=== PATIENT | female | born 1950 ===

== ENCOUNTER 2017-11-03 11:35 | Emergency (ER) | payer OTHER ==
[2017-11-03 12:44] VITALS: BP 149/76
--- NOTE | 2017-11-03 13:37 | UC ---
Abdominal Pain Female HPI - HPI Summary HPI Summary: 66 yo WF c/o acute 9/10 suprapubic pain x 2 days associated with changes in urines color to annamaria. Denies f/c - History of Current Complaint Chief Complaint: UCAbdominalPain Stated Complaint: ABD PAIN Time Seen by Provider: 11/03/17 12:44 Hx Obtained From: Patient ?: No Onset/Duration: Sudden Onset Severity Initially: Moderate Severity Currently: Severe Pain Intensity: 9 Character: Aching, Dull, Sharp Aggravating Factor(s): Nothing Alleviating Factor(s): Nothing Allergies/Adverse Reactions: Allergies Allergy/AdvReac Type Severity Reaction Status Date / Time No Known Allergies Allergy Verified 11/03/17 12:44 Home Medications: Home Medications Omeprazole CAP* [Prilosec CAP* 20 MG] 20 mg PO DAILY 11/03/17 [History Confirmed 11/03/17] Tramadol 50 MG # 6 TAB PREPAK 50 mg PO DAILY WITH MEAL MDD 100 11/03/17 [ History Confirmed 11/03/17] PMH/Surg Hx/FS Hx/Imm Hx - Additional Past Medical History Additional PMH: OBESE Previously Healthy: Yes - Surgical History Surgical History: Yes Surgery Procedure, Year, and Place: bi lateral knee replacement 2015, 2017 - Social History Alcohol Use: None Substance Use Type: None Smoking Status (MU): Former Smoker When Did the Patient Quit Smoking/Using Tobacco: 2006 Review of Systems Constitutional: Negative Skin: Negative Eyes: Negative ENT: Negative Respiratory: Negative Cardiovascular: Negative Gastrointestinal: Abdominal Pain Genitourinary: Other - suprapubic pain Motor: Negative Neurovascular: Negative Musculoskeletal: Negative Neurological: Negative Psychological: Negative All Other Systems Reviewed And Are Negative: Yes Physical Exam Triage Information Reviewed: Yes Vital Signs: Initial Vital Signs Temp 36.6 C 11/03/17 12:38 Pulse 90 11/03/17 12:38 Resp 20 11/03/17 12:38 BP 149/76 11/03/17 12:38 Pulse Ox 98 11/03/17 12:38 Eye Exam: Normal ENT Exam: Normal Dental Exam: Normal Neck exam: Normal Neck: Positive: 1 Respiratory Exam: Normal Cardiovascular Exam: Normal Abdominal Exam: Other Abdomen Description: Positive: Soft, Other: - discrete suprpubic tenderness- severe Musculoskeletal Exam: Normal Neurological Exam: Normal Psychological Exam: Normal Skin Exam: Normal Abd Pain Female Course/Dx - Course Course Of Treatment: UA- cloudy- acute change in color with suprapubic painmay be acute cystits with atypical presentation- tx with macrobid BID x 7 days - Differential Dx/Diagnosis Provider Diagnoses: Acute cystitis Discharge - Sign-Out/Discharge Documenting (check all that apply): Discharge/Admit/Transfer - Discharge Plan Condition: Stable Disposition: HOME Prescriptions: Nitrofurantoin Monohyd/M-Cryst [Macrobid 100 mg Capsule] 100 mg PO BID 7 Days # 14 cap Patient Education Materials: Urinary Tract Infection in Women (ED) Referrals: Brett WILSON,Jared Amezcua [Primary Care Provider] - - Billing Disposition and Condition Condition: STABLE Disposition: HOME
== END 2017-11-03 13:51 | disposition home or self-care (01) ==
LOC: UCEAST 11:35
DX: N30.00 Acute cystitis without hematuria (principal); Z87.891 Personal history of nicotine dependence; Z96.653 Presence of artificial knee joint, bilateral
CPT/HCPCS: 81003; 99202; G0463